=== PATIENT | male | born 1990 | race Caucasian/White ===

== ENCOUNTER 2017-04-26 09:54 | Emergency (ER) | payer OTHER ==
[2017-04-26] MEDS ORDERED: Ketorolac Tromethamine 30 MG/ML VIAL ONE (10:12)
== END 2017-04-26 10:33 | disposition home or self-care (01) ==
LOC: NAV ERS 09:54
DX: M79.651 Pain in right thigh (principal); I10 Essential (primary) hypertension; J45.909 Unspecified asthma, uncomplicated; Z79.899 Other long term (current) drug therapy
CPT/HCPCS: 96372; J1885

== ENCOUNTER 2017-08-05 23:39 | Emergency (ER) | payer OTHER | END 2017-08-06 01:00 | disposition home or self-care (01) | LOC: NAV ERS 23:39 | DX: H65.92 Unspecified nonsuppurative otitis media, left ear (principal); I10 Essential (primary) hypertension; J45.909 Unspecified asthma, uncomplicated; F41.9 Anxiety disorder, unspecified; F43.10 Post-traumatic stress disorder, unspecified; F17.220 Nicotine dependence, chewing tobacco, uncomplicated; Z79.899 Other long term (current) drug therapy | CPT/HCPCS: 99282 ==

== ENCOUNTER 2017-08-15 01:19 | Emergency (ER) | payer OTHER, SELFPAY ==
[2017-08-15] MEDS ORDERED: HYDROcodone/Acetaminophen 10/325 mg Tablet ONE (01:41)
== END 2017-08-15 01:45 | disposition home or self-care (01) ==
LOC: NAV ERS 01:19
DX: S00.83XA Contusion of other part of head, initial encounter (principal); I10 Essential (primary) hypertension; J45.909 Unspecified asthma, uncomplicated; F41.9 Anxiety disorder, unspecified; F17.290 Nicotine dependence, other tobacco product, uncomplicated; F43.10 Post-traumatic stress disorder, unspecified; Z79.899 Other long term (current) drug therapy; Y04.2XXA Assault by strike against or bumped into by another person, initial encounter
CPT/HCPCS: 99283

== ENCOUNTER 2018-06-16 20:39 | Emergency (ER) | payer OTHER, SELFPAY ==
[2018-06-16 21:31] LABS: #Eosinphils 0.2 thou/uL (0.0-0.7); #Lymphocytes 1.7 thou/uL (1.20-3.40); #Monocytes 0.7 thou/uL (0.11-0.59); #Neutrophils 3.9 thou/uL (1.40-6.50); %Basophils 0.7 % (0.0-1.0); %Eosinophils 2.7 % (0.0-10.0); %Lymphocytes 26.4 % (21.0-51.0); %Monocytes 10.6 % (0.0-10.0); %Neutrophils 59.7 % (42.0-75.0); Hemoglobin 15.7 g/dL (14.0-18.0); Mean Corpuscular HGB CONC 33.3 g/dL (32.0-36.0); Mean Corpuscular Hemoglobin 27.9 pg (27.0-31.0); Mean Corpuscular Volume 83.8 fL (78.0-98.0); Platelet Count 316 thou/uL (130-400); RBC Distribution Width 11.3 % (11.5-14.5); Red Blood Cell (RBC) Count 5.63 mill/uL (4.70-6.10); White Blood Cell (WBC) Count 6.6 thou/uL (4.8-10.8)
--- NOTE | 2018-06-16 21:31 | RAD ---
TWO VIEW CHEST 06/16/18 COMPARISON: 12/22/12. INDICATION: Cough. Chest pain. Dyspnea. FINDINGS: No lobar consolidation, effusion or pneumothorax. The cardiac silhouette is at upper limits of normal in size. No significant vascular congestion. There is no effusion or pneumothorax. Osseous structure s are intact. IMPRESSION: No focal consolidation. Cardiac silhouette is at upper limits of normal in size. POS: [facility]
[2018-06-16 21:46] LABS: Anion Gap 14 mmol/L (10-20); BUN (Urea Nitrogen) 10 mg/dL (8.9-20.6); Calc. Creatinine Clearance 0 mL/min (70-130); Calcium 9.2 mg/dL (7.8-10.44); Carbon Dioxide 22 mmol/L (22-29); Chloride 109 mmol/L (98-107); Estimated GFR-MDRD Greater than 90; Glucose 91 mg/dL (70-105); Potassium 3.6 mmol/L (3.5-5.1); Sodium 141 mmol/L (136-145)
== END 2018-06-16 22:31 | disposition home or self-care (01) ==
LOC: NAV ERS 20:39
DX: J18.9 Pneumonia, unspecified organism (principal); F41.9 Anxiety disorder, unspecified; I10 Essential (primary) hypertension; F43.10 Post-traumatic stress disorder, unspecified; F17.220 Nicotine dependence, chewing tobacco, uncomplicated; Z79.899 Other long term (current) drug therapy
CPT/HCPCS: 36415; 71046; 80048; 85025; 85379; 94640; J7620

== ENCOUNTER 2019-03-05 13:23 | Emergency (ER) | payer SELFPAY | END 2019-03-05 14:05 | disposition home or self-care (01) | LOC: NAV ERS 13:23 | DX: G43.909 Migraine, unspecified, not intractable, without status migrainosus (principal); F41.9 Anxiety disorder, unspecified; F43.10 Post-traumatic stress disorder, unspecified; F17.210 Nicotine dependence, cigarettes, uncomplicated; Z79.51 Long term (current) use of inhaled steroids; Z79.899 Other long term (current) drug therapy | CPT/HCPCS: 99283 ==

== ENCOUNTER 2019-05-27 13:54 | Emergency (ER) | payer BC, SELFPAY ==
[2019-05-27] MEDS ORDERED: Bacitracin 1 PK ONE (14:40)
== END 2019-05-27 14:46 | disposition home or self-care (01) ==
LOC: NAV ERS 13:54
DX: S61.402A Unspecified open wound of left hand, initial encounter (principal); F43.10 Post-traumatic stress disorder, unspecified; F41.9 Anxiety disorder, unspecified; I10 Essential (primary) hypertension; J45.909 Unspecified asthma, uncomplicated; F17.220 Nicotine dependence, chewing tobacco, uncomplicated; W32.0XXA Accidental handgun discharge, initial encounter
CPT/HCPCS: 99283

== ENCOUNTER → 2019-09-28 | Emergency (ER) | payer BC, SELFPAY ==
[~2019-09-28] MED LIST: Bacitracin 1 PK ONE; Lidocaine 1% (PF) 30 ML VIAL ONE
== END ==
LOC: NAV ERS 12:51
DX: S61.213A Laceration without foreign body of left middle finger without damage to nail, initial encounter (principal); I10 Essential (primary) hypertension; J45.909 Unspecified asthma, uncomplicated; F41.9 Anxiety disorder, unspecified; F43.10 Post-traumatic stress disorder, unspecified; F17.290 Nicotine dependence, other tobacco product, uncomplicated; W26.0XXA Contact with knife, initial encounter
CPT/HCPCS: 12001; 99282; J2001

== ENCOUNTER 2020-11-09 11:07 | Emergency (ER) | payer SELFPAY | END 2020-11-09 11:46 | disposition home or self-care (01) | LOC: NAV ERS 11:07 | DX: M54.2 Cervicalgia (principal); M54.6 Pain in thoracic spine; I10 Essential (primary) hypertension; J45.909 Unspecified asthma, uncomplicated; F17.290 Nicotine dependence, other tobacco product, uncomplicated | CPT/HCPCS: 99283 ==

== ENCOUNTER 2020-11-16 21:03 | Emergency (ER) | payer SELFPAY | END 2020-11-16 21:24 | disposition home or self-care (01) | LOC: NAV ERS 21:03 | DX: M54.5 Low back pain (principal); I10 Essential (primary) hypertension; J45.909 Unspecified asthma, uncomplicated; F17.290 Nicotine dependence, other tobacco product, uncomplicated; Z79.899 Other long term (current) drug therapy | CPT/HCPCS: 99283 ==

== ENCOUNTER 2021-03-04 13:31 | Emergency (ER) | payer SELFPAY ==
[2021-03-04] MEDS ORDERED: Ondansetron ODT 4 MG TAB ONE (13:48)
== END 2021-03-04 13:55 | disposition home or self-care (01) ==
LOC: NAV ERS 13:31
DX: U07.1 COVID-19 (principal); I10 Essential (primary) hypertension; F17.290 Nicotine dependence, other tobacco product, uncomplicated
CPT/HCPCS: 99283; Q0162